=== PATIENT | female | born 1955 | race Two or more races ===

== ENCOUNTER 2017-01-03 17:45 | Emergency (ER) | payer OTHER ==
[2017-01-03 18:00] VITALS: TEMP 98.1; BMI 24.9
[2017-01-03 18:49] LABS: BASOPHIL 1.2 % (0-2.0); EOSINOPHIL 2.3 % (0-4.5); MCH 29.7 pg (25.7-33.7); MCHC 32.9 g/dl (32.0-36.0); MEAN CELL VOLUME 90.5 fl (80-96); MEAN PLT VOLUME 9.8 fl (7.5-11.1); NEUTROPHILS 48.8 % (42.8-82.8); PLATELET COUNT 199 K/MM3 (134-434); WHITE BLOOD COUNT 11.9 K/mm3 (4.0-10.0)
--- NOTE | 2017-01-03 19:49 | PDOC ---
History of Present Illness - General History Source: Patient Exam Limitations: No Limitations - History of Present Illness Initial Comments: 01/03/17 20:09 The patient is a 61 year old female with significant past medical history of hypertension, hyperlipidemia, and diabetes who presents to the ED for 3 days of cough, chest congestion, and chest tightness. Patient reports occasional productive cough with yellow sputum. She also complaints of chest pain and SOB. Admits that she is still actively smoking. Denies diaphoresis, lightheadedness, palpitations, jaw pain, shoulder pain, arm pain, leg swelling, nausea, or vomiting. Denies h/o of asthma. No confirmed h/o of COPD reported. The patient denies fever, chills, abdominal pain, and diarrhea. Allergies: NKDA Social History: Current smoker (ppd). No alcohol or drug use reported. Past Surgical History: bladder lift, hysterectomy, PCP: Dr. Mal Lott <Ivory Singh - Last Filed: 01/03/17 20:10> - General History Source: Patient <Markus Pompa - Last Filed: 01/03/17 21:23> - General Chief Complaint: Chest Pain Stated Complaint: CHEST PAIN Time Seen by Provider: 01/03/17 19:49 Past History <Ivory Singh - Last Filed: 01/03/17 20:10> - Past Medical History Cardiac Disorders: Yes (PRE-INFART) Diabetes: Yes GI Disorders: Yes HTN: Yes Hypercholesterolemia: Yes - Surgical History Abdominal Surgery: Yes (BLADDER LIFT) - Psycho/Social/Smoking Cessation Hx Suicidal Ideation: No Smoking History: Current every day smoker Number of Cigarettes Smoked Daily: 20 Information on smoking cessation initiated: Yes 'Breaking Loose' booklet given: 01/03/17 Hx Alcohol Use: No Drug/Substance Use Hx: No Substance Use Type: None <Markus Pompa - Last Filed: 01/03/17 21:23> - Past Medical History Allergies/Adverse Reactions: Allergies Allergy/AdvReac Type Severity Reaction Status Date / Time No Known Allergies Allergy Verified 01/03/17 18:00 Home Medications: Ambulatory Orders Albuterol Sulfate Inhaler - [Ventolin HFA Inhaler -] 2 inh IH Q6H #1 inh Azithromycin [Zithromax -] 250 mg PO UTDICT #6 tab 01/03/17 Prednisone [Deltasone -] 40 mg PO DAILY #14 tablet 01/03/17 Review of Systems - Review of Systems Able to Perform ROS?: Yes Comments:: 01/03/17 20:09 CONSTITUTIONAL: Absent: fever, chills, diaphoresis, generalized weakness, malaise, loss of appetite HEENT: Absent: rhinorrhea, nasal congestion, throat pain, throat swelling, difficulty swallowing, mouth swelling, ear pain, eye pain, visual Changes CARDIOVASCULAR: +Chest pain Absent: syncope, palpitations, irregular heart rate, lightheadedness , peripheral edema RESPIRATORY: +SOB, cough, chest congestion and chest tightness Absent: dyspnea with exertion , orthopnea, wheezing, stridor, hemoptysis GASTROINTESTINAL: Absent: abdominal pain, abdominal distension, nausea, vomiting, diarrhea, constipation, melena, hematochezia GENITOURINARY: Absent: dysuria, frequency, urgency, hesitancy, hematuria, flank pain, genital pain MUSCULOSKELETAL: Absent: myalgia, arthralgia, joint swelling SKIN: Absent: rash, itching, pallor NEUROLOGIC: Absent: headache, focal weakness or paresthesias, dizziness, unsteady gait, seizure, mental status changes, bladder or bowel incontinence <Ivory Singh - Last Filed: 01/03/17 20:10> *Physical Exam - Vital Signs Last Vital Signs Temp Pulse Resp BP Pulse Ox 98.1 F 109 H 18 153/108 94 L 01/03/17 17:57 01/03/17 17:57 01/03/17 17:57 01/03/17 17:57 01/03/17 17:57 - Physical Exam Comments: 01/03/17 20:09 GENERAL: Well developed, well nourished. Awake and alert. No acute distress. HEENT: Normocephalic, atraumatic. PERRLA, EOMI. No conjunctival pallor. Sclera are non- icteric. Moist mucous membranes. Oropharynx is clear. NECK: Supple. Full ROM. No JVD. Carotid pulses 2+ and symmetric, without bruits. No thyromegaly. No lymphadenopathy. CARDIOVASCULAR: Tachycardia. Regular rhythm. No murmurs, rubs, or gallops. Distal pulses are 2+ and symmetric. PULMONARY: No evidence of respiratory distress. No conversational dyspnea. No retractions. Bilateral coarse rhonchi and scattered wheezing. ABDOMINAL: Soft. Non-tender. Non-distended. No rebound or guarding. No organomegaly. Normoactive bowel sounds. MUSCULOSKELETAL Normal range of motion at all joints. No bony deformities or tenderness. No CVA tenderness. EXTREMITIES: No cyanosis. No clubbing. No edema. No calf tenderness. SKIN: Warm and dry. Normal capillary refill. No rashes. No jaundice. NEUROLOGICAL: Alert, awake, appropriate. Cranial nerves 2-12 intact. Moving all extremities. No gross neurological deficits. <Ivory Singh - Last Filed: 01/03/17 20:10> - Vital Signs Last Vital Signs Temp Pulse Resp BP Pulse Ox 98.1 F 109 H 18 153/108 94 L 01/03/17 17:57 01/03/17 17:57 01/03/17 17:57 01/03/17 17:57 01/03/17 17:57 <Markus Pompa - Last Filed: 01/03/17 21:23> Heart Score/ECG Review - ECG Impressions Comment:: 01/03/17 20:10 Sinus tachycardia @107bpm Possible L atrial enlargement L anterior fascicular block Anteroseptal infarct, age undetermined Abnormal ECG <Ivory Singh - Last Filed: 01/03/17 20:10> ED Treatment Course - LABORATORY CBC & Chemistry Diagram: 01/03/17 18:30 01/03/17 18:30 - ADDITIONAL ORDERS Additional order review: Laboratory Results 01/03/17 18:30 Sodium 135 L Potassium 5.0 Chloride 99 Carbon Dioxide 30 Anion Gap 6 L BUN 20 H Creatinine 0.9 Creat Clearance w eGFR > 60 Random Glucose 223 H Calcium 9.2 Total Bilirubin 0.2 AST 19 ALT 24 Alkaline Phosphatase 135 H Creatine Kinase 62 Troponin I < 0.02 Total Protein 7.2 Albumin 3.6 01/03/17 18:30 RBC 5.67 H MCV 90.5 MCHC 32.9 RDW 14.0 MPV 9.8 Neutrophils % 48.8 Lymphocytes % 39.1 Monocytes % 8.6 Eosinophils % 2.3 Basophils % 1.2 <Ivory Singh - Last Filed: 01/03/17 20:10> - LABORATORY CBC & Chemistry Diagram: 01/03/17 18:30 01/03/17 18:30 - ADDITIONAL ORDERS Additional order review: 01/03/17 18:30 RBC 5.67 H MCV 90.5 MCHC 32.9 RDW 14.0 MPV 9.8 Neutrophils % 48.8 Lymphocytes % 39.1 Monocytes % 8.6 Eosinophils % 2.3 Basophils % 1.2 <Markus Pompa - Last Filed: 01/03/17 21:23> Medical Decision Making - Medical Decision Making 01/03/17 21:22 Dr. Pompa: The scribe's documentation has been prepared under my direction and personally reviewed by me in its entirery. I confirm that the note above accurately reflects all work, treatment, procedures, and medical decision making performed by me. Pt feeling better after nebulizes. Will discharge and advise pt to follow up with her pcp and Pulmonary <Markus Pompa - Last Filed: 01/03/17 21:23> *DC/Admit/Observation/Transfer - Attestations Scribe Attestion: 01/03/17 20:10 Documentation prepared by Ivory Singh, acting as biomedical equipment tech for Markus Pompa MD/DO. <Ivory Singh - Last Filed: 01/03/17 20:10> - Discharge Dispostion Admit: No <Markus Pompa - Last Filed: 01/03/17 21:23> Diagnosis at time of Disposition: Bronchitis - Discharge Dispostion Disposition: HOME Condition at time of disposition: Stable - Prescriptions Prescriptions: Prednisone [Deltasone -] 40 mg PO DAILY #14 tablet Albuterol Sulfate Inhaler - [Ventolin HFA Inhaler -] 2 inh IH Q6H #1 inh Azithromycin [Zithromax -] 250 mg PO UTDICT #6 tab - Referrals Referrals: Mal Lott MD [Primary Care Provider] - Priya Emerson MD [Staff Physician] - Hakeem Arenas MD [Staff Physician] - - Patient Instructions Printed Discharge Instructions: DI for Acute Bronchitis
[2017-01-03 19:50] LABS: ALBUMIN 3.6 g/dl (3.4-5.0); ANION GAP 6 (8-16); CALCIUM 9.2 mg/dL (8.5-10.1); CO2 30 mmol/L (21-32); GLUCOSE,RANDOM 223 mg/dL (74-106)
[2017-01-03] MEDS ORDERED: predniSONE 20 MG TABLET (UD) PO ONE (19:50)
[2017-01-03] MEDS ORDERED: ALBUTEROL SO4 2.5/IPRATROPIUM 0.5 INH SOL 3 ML VIAL.NEB. NEB STA ×3 (19:50→21:15)
[2017-01-03] MEDS ORDERED: predniSONE 20 MG TABLET (UD) ONE (19:54)
[2017-01-03 19:56] LABS: ALK PHOS 135 U/L (45-117); BILIRUBIN,TOTAL 0.2 mg/dL (0.2-1.0); CREATININE 0.9 mg/dL (0.55-1.02); SGOT/AST 19 U/L (15-37); SGPT/ALT 24 U/L (12-78); TOT PROT 7.2 g/dl (6.4-8.2); TROPONIN I < 0.02 ng/ml (0.00-0.05)
[2017-01-03] MEDS ORDERED: AZITHROMYCIN 250 MG TABLET (FP) PO STA (20:46)
[2017-01-03] MEDS ORDERED: AZITHROMYCIN 250 MG TABLET (FP) ONE (20:53)
[2017-01-03] MEDS ORDERED: MAG HYDROX/AL HYDROX/SIMETH 30 ML UNIT-DOSE CUP PO ONE (20:56)
[2017-01-03] MEDS ORDERED: MAG HYDROX/AL HYDROX/SIMETH 30 ML UNIT-DOSE CUP ONE (20:57)
[2017-01-03] MEDS ORDERED: ALBUTEROL SO4 2.5/IPRATROPIUM 0.5 INH SOL 3 ML VIAL.NEB. NEB ONE (21:25)
[2017-01-03 21:49] VITALS: BP 130/63; PULSE 90
--- NOTE | 2017-01-04 17:19 | EKG ---
Test Reason : Blood Pressure : / mmHG Vent. Rate : 107 BPM Atrial Rate : 107 BPM P-R Int : 150 ms QRS Dur : 088 ms QT Int : 342 ms P-R-T Axes : 073 -57 075 degrees QTc Int : 456 ms SINUS TACHYCARDIA POSSIBLE LEFT ATRIAL ENLARGEMENT LEFT ANTERIOR FASCICULAR BLOCK ANTEROSEPTAL INFARCT , AGE UNDETERMINED ABNORMAL ECG NO PREVIOUS ECGS AVAILABLE Confirmed by MD RED, MONICA ([id number]) on 01/04/2017 5:19:23 PM Referred By: Confirmed By:MONICA MOON MD
== END 2017-01-03 21:49 | disposition home or self-care (01) ==
LOC: JER 17:45
PROC: 3E0F7GC Introduction of Other Therapeutic Substance into Respiratory Tract, Via Natural or Artificial Opening (ICD-10-PCS; principal; 2017-01-03)
PROC: 3E0F7GC Introduction of Other Therapeutic Substance into Respiratory Tract, Via Natural or Artificial Opening (ICD-10-PCS; 2017-01-03)
DX: J20.9 Acute bronchitis, unspecified (principal)
CPT/HCPCS: 36415; 71020-TC; 80053; 82550; 84484; 85025; 93005; 93010; 99284-25